=== PATIENT | female | born 2005 | race Caucasian/White ===

== ENCOUNTER 2024-12-25 07:38 | Inpatient (IN) ==
[2024-12-25] MEDS ORDERED: LIDOCAINE 1% LOCAL 20 ML VIAL INFIL PRN (08:03)
[2024-12-25] MEDS ORDERED: CALCIUM CARBONATE 500 MG CHEWABLE TAB PO PRN (08:03)
[2024-12-25 09:07] LABS: Hemoglobin 11.6 g/dl (12.0-16.0); Mean Corpuscular Hemoglobin 30.2 pg (25.0-34.0); Mean Corpuscular Hgb Conc 34.1 g/dL (32.0-36.0); Mean Corpuscular Volume 88.5 fL (80.0-100.0); Mean Platelet Volume 10.3 fL (9.4-12.4); Platelet Count 341 K/uL (130-400); RDW Coefficient of Variation 12.9 % (11.5-14.5); RDW Standard Deviation 41.6 fL (36.4-46.3); Red Blood Count 3.84 M/uL (4.20-5.40); White Blood Count 8.17 K/ul (4.8-10.8)
[2024-12-25] MEDS: LACTATED RINGER'S 1,000 ML IV PRN (09:18)
[2024-12-25] MEDS: OXYTOCIN 30 UNITS/NSS 30 UNITS/500 ML BAG IV PRN (09:27)
[2024-12-25 09:30] LABS: Amphetamines+Metham, Urine Neg (Neg); Barbiturates, Urine Neg (Neg); Benzodiazepine, Urine Neg (Neg); Cocaine, Urine Neg (Neg); Fentanyl, Urine Neg (Neg); MDMA (Ecstacy), Urine Neg (Neg); Marijuana, Urine Pos (Neg); Methadone, Urine Neg (Neg); Opiate, Urine Neg (Neg); Phencyclidine, Urine Neg (Neg)
--- NOTE | 2024-12-25 09:57 | History & Physical Report ---
Date of Service December 25, 2024 Assessment & Plan (1) Encounter for elective induction of labor: (2) Genital herpes: Plan 19 yo G1 at 39 4/7 wga presents for eiol VSS Fetus cat 1 Labor - 35cc bulb placed, pit started HSV - no HSV lesions noted on exam, pt denies prodromal s/s UDS obtained per PNI plan GBS neg epidural prn Admission and Anticipated Discharge Date Admission Date: December 25, 2024 History of Present Illness Chief Complaint: IOL Primary Care Provider: NO PCP 19 yo G1 at 39 4/7 wga presents for eIOL. 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 hx HSV Allergies Allergy/AdvReac Type Severity Reaction Status Date / Time No Known Allergies Allergy Verified 12/24/24 15:34 Home Medications Medication Instructions Recorded Confirmed Type valacyclovir 500 mg tablet 500 mg PO BID #60 tabs 11/18/24 12/25/24 Rx (Valtrex) ferrous sulfate 325 mg (65 mg 325 mg PO DAILY 12/25/24 12/25/24 History iron) tablet (Iron (ferrous sulfate)) vits no.124-ferrous fum 1 tab PO DAILY 12/25/24 12/25/24 History 27 mg iron-folic acid 800 mcg tablet ( Vitamin) Patient History Medical History (Updated 12/25/24 @ 10:01 by Brooklyn Lopes MD) Genital herpes Anxiety Varicella vaccination Surgical History No history of previous surgery Family History (Updated 05/24/24 @ 14:08 by Eladia Bruner, WILBUR) Grandfather (Maternal) Stroke Grandmother (Maternal) Breast cancer Grandmother (Paternal) Breast cancer Grandfather (Maternal) Alzheimer disease Denies family history of Ovarian cancer Prostate cancer Diabetes Myocardial infarction Colorectal cancer Hypertension Social History (Updated 05/24/24 @ 14:20 by Eladia Bruner, WILBUR) Smoking Status: Current every day smoker Tobacco Type: E-cigarettes / Vaping Cigarettes Per Day: Vapes up to 50x per day- states currently trying to wean off; Second Hand Exposure: No; Do You Dip or Chew Tobacco: No; Tobacco Cessation Education Requested by Patient: No Hx Alcohol Use: No Hx Substance Use: Yes Prescribed Medications: Marijuana Last Used Substance: Just Prior to Arrival Preferred Language: Spanish Communication Ability: Effective Visual Impairment: No Limitations Hearing Ability: Normal Pattern Chain Builder Required: No Beliefs That Will Affect Care: None marital status: Single marital status details: George Reyes (28) [phone] Current Living Situation: Family Current Living Situation Comment: Lives at home with FOB, step daughter, and one cat. 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 [employer] How many Children do You have: 0 Other Information That Helps Us Care for You: No Feels Safe at Home: Yes Safety Concerns: Feels Safe At This Time Childhood Exposure to Second-Hand Smoke: Yes Diet: regular caffeine: Yes Dental Care, Regularly: Yes Physical Activity Frequency: 5-6 Times per Week Seatbelt Use: always Sunscreen Use: Yes Physical Exam Genitourinary: OB Exam Abdomen: + vertex (confirmed by bsus) and + estimated weight (6-7) Manual OB Exam: + cervical dilation 1 cm, + cervical effacement 50% and + station -2 OB Exam Monitor Tracing: + external FHT monitor used, + external uterine monitor used (none) and + category I (135-140/mod/+accel/-decel) No HSV lesions noted on exam Results & Data Vital Signs (Past 12 Hours) Vital Signs Temp Pulse Resp BP 12/25/24 09:33 75 12/25/24 09:33 119/73 12/25/24 08:16 98.8 F 18 12/25/24 07:47 83 127/72 Laboratory Results OB Labs: Blood Type O Positive 06/03/24 Antibody Screen NEGATIVE 06/03/24 Hgb 10.4 g/dl (12.0-16.0) L 10/07/24 Hct 31.3 % (37.0-47.0) L 10/07/24 MCV 88.2 fL (80.0-100.0) 06/03/24 Plt Count 314 K/uL (130-400) 06/03/24 Rubella IgG Antibody Immune (Immune) 06/03/24 RPR Nonreactive (Nonreactive) 06/03/24 Treponema pallidum Ab Negative (Negative) 10/07/24 Hep Bs Antigen Negative (Negative) 06/03/24 Hepatitis C Antibody Negative (Negative) 06/03/24 Hepatitis C Ab (EIA) NON-REACTIVE (NON-REACTIVE) 04/25/23 HIV 1&2 Ab/P24 Ag 4thGn Negative (Negative) 06/03/24 Glucose 1 Hr 50 gm 110 mg/dl (70-130) 10/07/24 Maternal Serum AFP 42.4 ng/mL 07/29/24 OB Optional Labs: Chlamydia trachomatis RNA Not Detected (NotDetected) 06/03/24 Neisseria gonorrhoeae RNA Not Detected (NotDetected) 06/03/24 Alpha Fetoprotein Triple Screen SEE NOTE 07/29/24 Labs Reviewed: low risk cfdna - sln neg horiaon 14 - sln gbs neg Diagnostic Findings posterior plac Coding Level of Care Code None Diagnoses Encounter for elective induction of labor Z34.90 Genital herpes A60.00
--- NOTE | 2024-12-25 16:22 | Labor Progress Brief Note ---
Date of Service December 25, 2024 Subjective ctx a bit worse Assessment & Plan (1) Encounter for elective induction of labor: (2) Genital herpes: Plan 19 yo G1 at 39 4/7 wga presents for eiol VSS Fetus cat 1 Labor - bulb still in but seems like coming out of cervix so will give it more time HSV - no HSV lesions noted, pt denies prodromal s/s GBS neg epidural prn Admission and Anticipated Discharge Date Admission Date: December 25, 2024 Physical Exam Genitourinary: OB Exam Monitor Tracing: + external FHT monitor used, + external uterine monitor used (none) and + category I (135-140/mod/+accel/-decel) bulb about intermediate through cervix on SVE Results & Data Vital Signs (Past 12 Hours) Vital Signs Temp Pulse Resp BP 12/25/24 15:34 69 12/25/24 15:34 118/79 12/25/24 14:35 56 L 12/25/24 14:35 118/70 12/25/24 13:34 84 12/25/24 13:34 130/73 12/25/24 12:34 52 L 12/25/24 12:34 122/71 12/25/24 11:59 99.0 F 12/25/24 11:43 51 L 12/25/24 11:43 126/75 12/25/24 10:35 72 12/25/24 10:35 122/71 12/25/24 09:33 75 12/25/24 09:33 119/73 12/25/24 08:16 98.8 F 18 12/25/24 07:50 98.8 F 12/25/24 07:47 83 127/72 Coding Level of Care Code None Diagnoses Encounter for elective induction of labor Z34.90 Genital herpes A60.00
--- NOTE | 2024-12-25 18:30 | Labor Progress Brief Note ---
Date of Service December 25, 2024 Subjective bulb out Assessment & Plan (1) Encounter for elective induction of labor: (2) Genital herpes: Plan 19 yo G1 at 39 4/7 wga presents for eiol VSS Fetus cat 1 Labor - bulb out, offered arom. She would like epidural before arom but would like to bounce on ball a bit and move around room before doing so, will continue pit in the interim GBS neg epidural prn Admission and Anticipated Discharge Date Admission Date: December 25, 2024 Physical Exam Genitourinary: Manual OB Exam: + cervical dilation 4 cm, + cervical effacement 50% and + station -2 OB Exam Monitor Tracing: + external FHT monitor used, + external uterine monitor used (q4) and + category I (120/mod/+accel/-decel) Results & Data Vital Signs (Past 12 Hours) Vital Signs Temp Pulse Resp BP 12/25/24 17:34 65 12/25/24 17:34 121/82 12/25/24 16:34 63 12/25/24 16:34 120/84 12/25/24 16:00 98.8 F 12/25/24 15:34 69 12/25/24 15:34 118/79 12/25/24 14:35 56 L 12/25/24 14:35 118/70 12/25/24 13:34 84 12/25/24 13:34 130/73 12/25/24 12:34 52 L 12/25/24 12:34 122/71 12/25/24 11:59 99.0 F 12/25/24 11:43 51 L 12/25/24 11:43 126/75 12/25/24 10:35 72 12/25/24 10:35 122/71 12/25/24 09:33 75 12/25/24 09:33 119/73 12/25/24 08:16 98.8 F 18 12/25/24 07:50 98.8 F 12/25/24 07:47 83 127/72 Coding Level of Care Code None Diagnoses Encounter for elective induction of labor Z34.90 Genital herpes A60.00
[2024-12-25] MEDS ORDERED: NALBUPHINE HCL INJ 10 MG/ML AMP IV PRN (20:30)
[2024-12-25] MEDS ORDERED: ONDANSETRON INJ 2 MG/ML 2 ML VIAL IV PRN (20:30)
[2024-12-25] MEDS ORDERED: fentaNYL citrate PF 100 MCG/2 ML VIAL EPI PRN (20:30)
[2024-12-25] MEDS ORDERED: ROPIVACAINE 0.5% PF 5 MG/ML 20 ML VIAL EPI PRN (20:30)
[2024-12-25] MEDS ORDERED: NALOXONE HCL 1 MG in SODIUM CHLORIDE 0.9% 1,000 ML IV PRN (20:30)
[2024-12-25] MEDS ORDERED: BUPIVACAINE 0.25% PF 30 ML VIAL EPI PRN (20:30)
[2024-12-25] MEDS ORDERED: NALOXONE HCL 0.4 MG/1 ML VIAL/CARP IV PRN (20:30)
[2024-12-25] MEDS ORDERED: LIDOCAINE 2% MPF LOCAL 5 ML VIAL EPI PRN (20:30)
[2024-12-25] MEDS ORDERED: SODIUM CHLORIDE 0.9% PF INJ 10 ML VIAL EPI PRN (20:30)
[2024-12-25] MEDS ORDERED: diphenhydrAMINE 50 MG/ML VIAL IV PRN (20:30)
[2024-12-25] MEDS ORDERED: ePHEDrine sulfate 50 MG/ML AMP IV PRN (20:30)
--- NOTE | 2024-12-25 20:32 | Anesthesiology Consultation ---
Date of Service December 25, 2024 Assessment & Plan ASA ASA2 Proposed Anesthesia Anesthesia Type: Labor Epidural Risk / Benefits Reviewed With: PT / POA / Parent / Guardian, Accepts Plan and Informed Consent Obtained History Height/Weight Height: 5 ft 4 in Weight: 71.214 kg Allergies Allergy/AdvReac Type Severity Reaction Status Date / Time No Known Allergies Allergy Verified 12/24/24 15:34 Medications Home Medications Medication Instructions Recorded Confirmed Last Taken valacyclovir 500 mg tablet 500 mg PO BID #60 tabs 11/18/24 12/25/24 12/25/24 06:30 (Valtrex) ferrous sulfate 325 mg (65 mg 325 mg PO DAILY 12/25/24 12/25/24 12/25/24 06:30 iron) tablet (Iron (ferrous sulfate)) vits no.124-ferrous fum 1 tab PO DAILY 12/25/24 12/25/24 12/25/24 06:30 27 mg iron-folic acid 800 mcg tablet ( Vitamin) Active Medications Generic Name Dose Route Start Last Admin Trade Name Caseyq PRN Reason Stop Dose Admin Acetaminophen 640 mg 12/26/24 00:29 12/26/24 00:46 Acetaminophen Susp 160 Mg/5 Ml Udc PO 01/25/25 00:28 640 mg Q6H PRN Administration Headache Fentanyl/Bupivacaine/Sodium Chlor 100 ml 12/25/24 20:30 12/26/24 01:53 Fentanyl 2 Mcg/Ml Bupivacaine 0.125%-Nss 100ml Bag EPI 12/26/24 20:29 100 ml PRN PRN Administration Pain R/T Labor Protocol Lactated Ringer's 1,000 mls @ 125 mls/hr 12/25/24 08:03 12/26/24 02:18 Lr IV 12/26/24 08:02 125 mls/hr .Q8H PRN Administration L&D Protocol Protocol Oxytocin 30 units in 500 mls @ 13 mls/hr 12/25/24 08:03 12/26/24 00:15 Pitocin 30 Units/Nss IV 12/27/24 08:02 0.78 units/hr .Q24H PRN 13 mls/hr Labor Induction/Augmentation Titration Protocol 0.78 UNITS/HR Past Medical History Medical History Genital herpes Anxiety Varicella vaccination Exercise / Class Metabolic Activity II 4-5 Yardwork/Stairs/Walk up hill Past Family History Family History Grandfather (Maternal) Stroke Grandmother (Maternal) Breast cancer Grandmother (Paternal) Breast cancer Grandfather (Maternal) Alzheimer disease Denies family history of Ovarian cancer Prostate cancer Diabetes Myocardial infarction Colorectal cancer Hypertension Past Surgical History Surgical History No history of previous surgery Past Anesthesia History No Hx of Anesthesia Complications and No Family Hx of Anesthesia Complications History of PONV No Hx of PONV and No Hx of Motion Sickness Social History Smoking Status: Current every day smoker Smoking cigarettes per day: Vapes up to 50x per day- states currently trying to wean off Do You Dip or Chew Tobacco: No Hx Alcohol Use: No Hx Substance Use: Yes substance use type: marijuana Last Used Substance: Just Prior to Arrival Review of Systems denies fever/cough/ colds/ chest pain/ SOB/ SANG denies SANG Physical Exam Vital Signs Last Vital Signs Temp 36.8 C 12/26/24 04:11 Pulse 68 12/26/24 04:36 Resp 18 12/26/24 03:00 BP 113/67 12/26/24 04:36 Pulse Ox 98 12/26/24 04:36 ENMT Mouth: no TMJ abnormality and no dentition abnormality Thyromental Distance: > or= 3.5 Finger Breadths Mallampati Class: II Neck neck extension not limited Respiratory normal respiratory effort; no respiratory distress Auscultation: lungs clear to auscultation bilaterally Cardiovascular Rate/Rhythm: regular rate and regular rhythm Neurologic moves all extremities Psychiatric Orientation: alert and oriented x 3 Testing Laboratory Results 12/25/24 08:46
[2024-12-25] MEDS: fentANYL 2 MCG/ML BUPIVacaine 0.125%-NSS 100ML BAG ONE (20:56)
[2024-12-25] MEDS: fentaNYL citrate PF 100 MCG/2 ML VIAL ONE (20:57)
[2024-12-25] MEDS: BUPIVACAINE 0.25% PF 30 ML VIAL ONE (20:57)
[2024-12-25] MEDS: LIDOCAINE 2%/EPINEPHRINE 1:200,000 20 ML PF ONE (20:57)
[2024-12-25] MEDS: SODIUM CHLORIDE 0.9% PF INJ 10 ML VIAL ONE (20:58)
[2024-12-25] MEDS: BUPIVACAINE 0.25% PF 30 ML VIAL EPI STA (20:58)
[2024-12-25] MEDS: SODIUM CHLORIDE 0.9% PF INJ 10 ML VIAL EPI STA (21:00)
[2024-12-25] MEDS: LIDOCAINE 2%/EPINEPHRINE 1:200,000 20 ML PF EPI STA (21:00)
[2024-12-25] MEDS: fentaNYL citrate PF 100 MCG/2 ML VIAL EPI STA (21:00)
--- NOTE | 2024-12-25 21:52 | Labor Progress Brief Note ---
Date of Service December 25, 2024 Subjective comfortable w/ epidural Assessment & Plan (1) Encounter for elective induction of labor: (2) Genital herpes: Plan 19 yo G1 at 39 4/7 wga presents for eiol VSS Fetus cat 1 Labor - pit at 7, now accepted arom. Continue induction GBS neg epidural in place Admission and Anticipated Discharge Date Admission Date: December 25, 2024 Physical Exam Genitourinary: Manual OB Exam: + cervical dilation 4 cm, + cervical effacement 50%, + station -2 and + amniotic fluid (arom clear) OB Exam Monitor Tracing: + external FHT monitor used, + external uterine monitor used (q3-4) and + category I (120/mod/+accel/-decel) Results & Data Vital Signs (Past 12 Hours) Vital Signs Temp Pulse Resp BP Pulse Ox 12/25/24 21:46 100 12/25/24 21:46 53 L 12/25/24 21:41 97 12/25/24 21:41 58 L 12/25/24 21:36 98 12/25/24 21:36 61 12/25/24 21:36 118/66 12/25/24 21:31 98 12/25/24 21:31 58 L 12/25/24 21:26 99 12/25/24 21:26 104 H 12/25/24 21:21 100 12/25/24 21:21 61 12/25/24 21:19 58 L 12/25/24 21:19 117/69 12/25/24 21:17 62 12/25/24 21:17 121/76 12/25/24 21:16 100 12/25/24 21:16 82 12/25/24 21:15 94 12/25/24 21:15 72 12/25/24 21:15 123/71 12/25/24 21:13 64 12/25/24 21:13 117/69 12/25/24 21:11 99 12/25/24 21:11 61 12/25/24 21:11 119/69 12/25/24 21:09 61 12/25/24 21:09 119/70 12/25/24 21:07 55 L 12/25/24 21:07 116/67 12/25/24 21:06 99 12/25/24 21:06 66 12/25/24 21:05 62 12/25/24 21:05 104/60 12/25/24 21:03 55 L 12/25/24 21:03 119/66 12/25/24 21:01 99 12/25/24 21:01 57 L 12/25/24 21:01 112/67 12/25/24 20:59 63 12/25/24 20:59 114/71 12/25/24 20:57 61 12/25/24 20:57 119/67 12/25/24 20:56 98 12/25/24 20:56 58 L 12/25/24 20:55 61 12/25/24 20:55 119/76 12/25/24 20:51 99 12/25/24 20:51 69 12/25/24 20:46 100 12/25/24 20:46 72 12/25/24 20:41 97 12/25/24 20:41 76 12/25/24 20:36 98 12/25/24 20:36 56 L 12/25/24 20:34 55 L 12/25/24 20:34 127/73 12/25/24 20:31 100 12/25/24 20:31 56 L 12/25/24 19:40 18 12/25/24 19:40 97.9 F 18 12/25/24 19:34 75 12/25/24 19:34 125/70 12/25/24 18:34 72 12/25/24 18:34 115/70 12/25/24 17:34 65 12/25/24 17:34 121/82 12/25/24 16:34 63 12/25/24 16:34 120/84 12/25/24 16:00 98.8 F 12/25/24 15:34 69 12/25/24 15:34 118/79 12/25/24 14:35 56 L 12/25/24 14:35 118/70 12/25/24 13:34 84 12/25/24 13:34 130/73 12/25/24 12:34 52 L 12/25/24 12:34 122/71 12/25/24 11:59 99.0 F 12/25/24 11:43 51 L 12/25/24 11:43 126/75 12/25/24 10:35 72 12/25/24 10:35 122/71 Coding Level of Care Code None Diagnoses Encounter for elective induction of labor Z34.90 Genital herpes A60.00
[2024-12-26] MEDS: ePHEDrine sulfate 50 MG/ML AMP ONE (00:21)
[2024-12-26] MEDS: ACETAMINOPHEN SUSP 160 MG/5 ML UDC PO PRN (00:46)
[2024-12-26] MEDS: fentANYL 2 MCG/ML BUPIVacaine 0.125%-NSS 100ML BAG EPI PRN (01:53)
[2024-12-26] MEDS ORDERED: NURSING L&D Epidural Breakthrough Pain Update ONE (02:02)
--- NOTE | 2024-12-26 03:14 | Labor Progress Brief Note ---
Date of Service December 26, 2024 Subjective resting Assessment & Plan (1) Encounter for elective induction of labor: (2) Genital herpes: Plan 19 yo G1 at 39 4/7 wga presents for eiol VSS Fetus cat 1 Labor - progress noted on RN exam, continue induction GBS neg epidural in place Admission and Anticipated Discharge Date Admission Date: December 25, 2024 Physical Exam Genitourinary: OB Exam Monitor Tracing: + external FHT monitor used, + external uterine monitor used (q3-4) and + category I (140/mod/+accel/-decel) SVE 6-7cm by RN Results & Data Vital Signs (Past 12 Hours) Vital Signs Temp Pulse Resp BP Pulse Ox 12/26/24 03:07 129 H 95/58 L 12/26/24 03:06 139 H 99 12/26/24 03:01 130 H 100 12/26/24 02:56 122 H 99 12/26/24 02:53 110 H 109/68 12/26/24 02:51 131 H 99 12/26/24 02:46 131 H 100 12/26/24 02:41 87 98 12/26/24 02:38 109 H 102/52 L 12/26/24 02:36 86 99 12/26/24 02:31 109 H 97 12/26/24 02:26 73 100 12/26/24 02:23 81 110/69 12/26/24 02:21 103 H 100 12/26/24 02:16 70 100 12/26/24 02:11 82 100 12/26/24 02:06 80 111/66 100 12/26/24 02:03 98.4 F 12/26/24 02:01 95 H 100 12/26/24 01:56 70 100 12/26/24 01:52 71 110/68 12/26/24 01:51 80 100 12/26/24 01:46 95 H 100 12/26/24 01:41 56 L 97 12/26/24 01:38 57 L 103/57 L 12/26/24 01:36 56 L 100 12/26/24 01:31 59 L 99 12/26/24 01:30 63 93 12/26/24 01:26 91 H 100 12/26/24 01:24 84 89 L 12/26/24 01:23 93 H 116/71 12/26/24 01:21 70 99 12/26/24 01:16 53 L 99 12/26/24 01:11 54 L 99 12/26/24 01:06 61 113/57 L 98 12/26/24 01:01 52 L 98 12/26/24 00:56 57 L 98 12/26/24 00:51 53 L 105/55 L 100 12/26/24 00:46 59 L 100 12/26/24 00:45 67 94 12/26/24 00:41 77 100 12/26/24 00:38 84 110/67 12/26/24 00:36 72 100 12/26/24 00:34 72 90 12/26/24 00:31 80 100 12/26/24 00:26 74 99 12/26/24 00:22 80 114/74 12/26/24 00:21 75 100 12/26/24 00:16 76 100 12/26/24 00:11 64 100 12/26/24 00:07 61 115/70 12/26/24 00:06 61 100 12/26/24 00:01 72 100 12/25/24 23:56 99 12/25/24 23:56 61 12/25/24 23:52 70 12/25/24 23:52 115/60 12/25/24 23:51 96 12/25/24 23:51 61 12/25/24 23:46 97 12/25/24 23:46 60 12/25/24 23:41 97 12/25/24 23:41 59 L 12/25/24 23:37 55 L 12/25/24 23:37 110/64 12/25/24 23:36 97 12/25/24 23:36 53 L 12/25/24 23:31 98 12/25/24 23:31 53 L 12/25/24 23:26 99 12/25/24 23:26 56 L 12/25/24 23:21 100 12/25/24 23:21 58 L 12/25/24 23:21 109/69 12/25/24 23:16 100 12/25/24 23:16 68 12/25/24 23:15 92 12/25/24 23:15 59 L 12/25/24 23:11 100 12/25/24 23:11 55 L 12/25/24 23:08 88 L 12/25/24 23:08 56 L 12/25/24 23:06 100 12/25/24 23:06 58 L 12/25/24 23:06 110/66 12/25/24 23:01 14 12/25/24 23:01 97.9 F 14 12/25/24 23:01 100 12/25/24 23:01 53 L 12/25/24 22:56 100 12/25/24 22:56 55 L 12/25/24 22:52 48 L 12/25/24 22:52 112/68 12/25/24 22:51 99 12/25/24 22:51 49 L 12/25/24 22:46 98 12/25/24 22:46 55 L 12/25/24 22:41 100 12/25/24 22:41 61 12/25/24 22:38 52 L 12/25/24 22:38 119/72 12/25/24 22:36 100 12/25/24 22:36 59 L 12/25/24 22:31 96 12/25/24 22:31 65 12/25/24 22:26 98 12/25/24 22:26 45 L 12/25/24 22:22 52 L 12/25/24 22:22 114/64 12/25/24 22:21 97 12/25/24 22:21 54 L 12/25/24 22:16 98 12/25/24 22:16 53 L 12/25/24 22:11 98 12/25/24 22:11 56 L 12/25/24 22:06 98 12/25/24 22:06 51 L 12/25/24 22:06 113/65 12/25/24 22:01 99 12/25/24 22:01 54 L 12/25/24 21:56 100 12/25/24 21:56 55 L 12/25/24 21:52 54 L 12/25/24 21:52 119/75 12/25/24 21:51 100 12/25/24 21:51 59 L 12/25/24 21:49 16 12/25/24 21:49 98.4 F 16 12/25/24 21:46 100 12/25/24 21:46 53 L 12/25/24 21:41 97 12/25/24 21:41 58 L 12/25/24 21:36 98 12/25/24 21:36 61 12/25/24 21:36 118/66 12/25/24 21:31 98 12/25/24 21:31 58 L 12/25/24 21:26 99 12/25/24 21:26 104 H 12/25/24 21:21 100 12/25/24 21:21 61 12/25/24 21:19 58 L 12/25/24 21:19 117/69 12/25/24 21:17 62 12/25/24 21:17 121/76 12/25/24 21:16 100 12/25/24 21:16 82 12/25/24 21:15 94 12/25/24 21:15 72 12/25/24 21:15 123/71 12/25/24 21:13 64 12/25/24 21:13 117/69 12/25/24 21:11 99 12/25/24 21:11 61 12/25/24 21:11 119/69 12/25/24 21:09 61 12/25/24 21:09 119/70 12/25/24 21:07 55 L 12/25/24 21:07 116/67 12/25/24 21:06 99 12/25/24 21:06 66 12/25/24 21:05 62 12/25/24 21:05 104/60 12/25/24 21:03 55 L 12/25/24 21:03 119/66 12/25/24 21:01 99 12/25/24 21:01 57 L 12/25/24 21:01 112/67 12/25/24 20:59 63 12/25/24 20:59 114/71 12/25/24 20:57 61 12/25/24 20:57 119/67 12/25/24 20:56 98 12/25/24 20:56 58 L 12/25/24 20:55 61 12/25/24 20:55 119/76 12/25/24 20:51 99 12/25/24 20:51 69 12/25/24 20:46 100 12/25/24 20:46 72 12/25/24 20:41 97 12/25/24 20:41 76 12/25/24 20:36 98 12/25/24 20:36 56 L 12/25/24 20:34 55 L 12/25/24 20:34 127/73 12/25/24 20:31 100 12/25/24 20:31 56 L 12/25/24 19:40 18 12/25/24 19:40 97.9 F 18 12/25/24 19:34 75 12/25/24 19:34 125/70 12/25/24 18:34 72 12/25/24 18:34 115/70 12/25/24 17:34 65 12/25/24 17:34 121/82 12/25/24 16:34 63 12/25/24 16:34 120/84 12/25/24 16:00 98.8 F 12/25/24 15:34 69 12/25/24 15:34 118/79 Coding Level of Care Code None Diagnoses Encounter for elective induction of labor Z34.90 Genital herpes A60.00
[2024-12-26] MEDS: OXYTOCIN 30 UNITS/NSS 30 UNITS/500 ML BAG IV PRN (05:45)
--- NOTE | 2024-12-26 06:00 | Delivery Summary ---
Vaginal Delivery Summary Date of Service December 26, 2024 Vaginal Delivery Summary [facility] PREOPERATIVE DIAGNOSIS: 1. Single intrauterine at 39 5/7 wga 2. Elective IOL POSTOPERATIVE DIAGNOSIS: 1. Single intrauterine at 39 5/7 wga 2. Elective IOL 3. Shoulder dystocia 4. Delivered PROCEDURE: 1. Normal spontaneous vaginal delivery. SURGEON: Brooklyn Lopes MD ANESTHESIA: Epidural. QUANTITATIVE BLOOD LOSS: 157 mL FLUIDS: Continuous LR. URINE OUTPUT: None. COMPLICATIONS: None. CONDITION: Stable. INDICATIONS: 19 yo G1 at 39 5/7 wga presented one day ago for elective IOL. Exam was performed and no HSV lesions identified. Mccauley bulb was placed and pitocin started. Following bulb expulsion, pitocin titrated and she received an epidural. She underwent arom and progressed to complete and desired to push FINDINGS: A viable female , weight pending with Apgars of 8 and 9 at 1 and 5 minutes respectively. SPECIMEN: Cord blood OPERATIVE REPORT: The patient progressed to 10 cm, 100% effaced and +2 station, pushed over intact perineum with anesthesia to deliver a viable female , weight and Apgars as above. Head of delivered in HANSEL position. Nuchal cord was reduced. Body and shoulders did not deliver with gentle downward trac tion. Shoulder dystocia called, Chris maneuver and suprapubic pressure were performed to alleviate the mild shoulder dystocia. was delivered to maternal abdomen and nursing staff. Delayed cord clamping was performed for 60 seconds as infant immediately vigorous. Cord was clamped and cut. Cord blood was obtained. Placenta delivered spontaneously intact with 3-vessel cord. IV oxytocin and fundal massage were given for excellent hemostasis. Vagina, cervix, perineum, and placenta were inspected. Hemostatic right periurethral abrasion did not need repaired. There was excellent hemostasis. Sponge and needle counts correct x2. No sponges were left behind. Mother and stable in immediate period. [facility] Vaginal Delivery Charge Vaginal Delivery Codes: 22547 global code for the antepartum, delivery, and post- Delivery Type Details: [facility]
[2024-12-26] MEDS ORDERED: OXYTOCIN 30 UNITS/NSS 30 UNITS/500 ML BAG IV PRN (06:30)
[2024-12-26] MEDS ORDERED: ACETAMINOPHEN 325 MG TAB PO PRN (06:30)
[2024-12-26] MEDS ORDERED: bisacodyL 10 MG SUPP PR PRN (06:30)
[2024-12-26] MEDS ORDERED: HYDROCORTISONE ACETATE 25 MG SUPP PR PRN (06:30)
[2024-12-26] MEDS ORDERED: BENZOCAINE 20% SPRY 85 APPLN/85 GM CAN EXT PRN (06:30)
[2024-12-26] MEDS ORDERED: PRENATAL VITAMIN 1 TAB PO SCH (08:00)
[2024-12-26] MEDS: DIPHTHER/TETAN/PERTUS Vaccine (Tdap, Adol/Adult) 0.5mL IM ONE (09:21)
[2024-12-26] MEDS: MULTIVITAMIN CHEWABLE TAB PO SCH (10:28)
[2024-12-26] MEDS: FERROUS SULFATE 325 MG TAB PO SCH (10:28)
[2024-12-26] MEDS: DOCUSATE SODIUM 100 MG CAP PO SCH (10:28)
--- NOTE | 2024-12-26 11:54 | Anesthesia Procedure Note ---
Date of Service December 26, 2024 Anesthesia Post Epidural Note Vital Signs Vital Signs: Temp Pulse Resp BP Pulse Ox 37.1 C 101 H 20 127/87 96 12/26/24 10:10 12/26/24 10:10 12/26/24 10:10 12/26/24 10:10 12/26/24 07:57 Pain Intensity Abdomen: Pain Intensity: 0 Notes Mental Status: alert / awake / arousable Nausea / Vomiting: adequately controlled Pain: adequately controlled Airway Patency, RR, SpO2: stable & adequate BP & HR: stable & adequate Hydration State: stable & adequate Neuraxial Anesthesia: was administered and sensory block is resolving Anesthetic Complications: no major complications apparent and Pt Satisfied with anesthetic care Epidural: Removed without complications and With tip intact
[2024-12-26 12:36] VITALS: RESP 16
[2024-12-26] MEDS: IBUPROFEN 600 MG TAB PO PRN (14:09)
[2024-12-27 01:27] LABS: Marijuana Quant, GCMS Urine 418 ng/mL (<5)
[2024-12-27 03:26] VITALS: O2SAT 98
--- NOTE | 2024-12-27 07:05 | Obstetrical Progress Note ---
Date of Service December 27, 2024 Assessment & Plan (1) Vaginal delivery: Plan: 1st PP Day following years at 39 week POG. Both mom and baby doing well. Discharge today as per protocol. Admission and Anticipated Discharge Date Admission Date: December 25, 2024 Supervising Physician Co-Signing Physician Notes Resident Physician Supervision Note: I interviewed and examined the patient. Discussed with Dr. Coon and agree with findings and plan as documented in the note. Any exceptions or clarifications are listed here: [ ] Documented By: Myesha Fuentes MD, FACOG Subjective 1st PP Day following years at 39 week POG. No active complains Both mom and baby doing well. Pain: Mild, intermittent Lochia: Moderate Diet: Regular Ob diet Peeing: Normal, no bladder distension Ambulation: Normally Review of Systems Review of Systems: No SOB, chest pain, leg pain No dizziness, headache, palpitation No Blurring of vision , fever Physical Exam Physical Exam: General: Alert and oriented. No acute distress. CVS: S1 S2+ No murmurs, regular rhythm. Respiratory: CTA bilaterally. No rhonchi, wheezes, or crackles. No increased work of breathing. Abdomen: Bowel sound +. Soft, nontender Uterus: Fundus firm and palpable few cm below the umbilicus. Lower extremities: No LE edema. No deep calf pain. Results & Data Vital Signs (Past 12 Hours) Vital Signs Temp Pulse Resp BP Pulse Ox O2 Del Method 12/27/24 03:25 36.3 C L 66 16 132/82 98 Room Air 12/26/24 23:07 36.3 C L 64 16 98/58 L 99 Room Air 12/26/24 19:08 36.9 C 80 16 119/73 98 Room Air Resident Activity Tracking Resident Involvement: Resident Care Provided Care Provided: OB Delivery
[2024-12-27 08:44] VITALS: BP 111/74; PULSE 62; TEMP 97.7
[2024-12-27] MEDS ORDERED: bisacodyL 5 MG TABEC PO SCH (20:00)
== END 2024-12-27 13:10 | disposition home or self-care (01) | DRG 807 ==
LOC: 4S1 07:38 → 4E2 12-26 10:24